=== PATIENT | male | born 1990 | race Hispanic/Latino ===

== ENCOUNTER 2017-06-14 10:51 | Observation (INO) | payer BC, OTHER ==
[2017-06-14 11:00] VITALS: BMI 27.1
[2017-06-14] MEDS ORDERED: Sodium Chloride 0.9% 1,000 ML IV STA (11:11)
--- NOTE | 2017-06-14 11:13 | ED PDOC ---
HPI: Abdomen Time Seen by Provider: 06/14/17 11:06 Chief Complaint (Nursing): Abdominal Pain Chief Complaint (Provider): abdominal pain, nausea, fever History Per: Patient History/Exam Limitations: no limitations Onset/Duration Of Symptoms: Days (2) Current Symptoms Are (Timing): Still Present Severity: Moderate Location Of Pain/Discomfort: RLQ Quality Of Discomfort: Sharp Associated Symptoms: Fever, Nausea, Vomiting, Loss Of Appetite. denies: Diarrhea Exacerbating Factors: None Alleviating Factors: None Additional Complaint(s): 26yo male sent from urgent care for RLQ pain x2 days associated with nausea/ vomiting and chills/fever. Concern for appendicitis. Pt denies prior history of similar pain. Past Medical History Reviewed: Historical Data, Nursing Documentation, Vital Signs Vital Signs: Last Vital Signs Temp 98.3 F 06/15/17 08:37 Pulse 73 06/15/17 08:37 Resp 18 06/15/17 08:37 BP 106/62 06/15/17 08:37 Pulse Ox 98 06/15/17 08:37 - Medical History PMH: No Chronic Diseases - Surgical History Surgical History: No Surg Hx - Family History Family History: States: Unknown Family Hx - Social History Current smoker - smoking cessation education provided: No Alcohol: Social - Home Medications Home Medications: Ambulatory Orders Medication Instructions Recorded Amoxicillin/Clavulanate [Augmentin 1 tab PO Q12 #14 tab 06/15/17 875 MG-125 MG] oxyCODONE/Acetaminophen [Percocet 1 tab PO Q6 PRN #30 tab 06/15/17 5/325 mg Tab] - Allergies Allergies/Adverse Reactions: Allergies Allergy/AdvReac Type Severity Reaction Status Date / Time No Known Allergies Allergy Verified 06/14/17 11:08 Review of Systems Constitutional: Positive for: Fever, Chills ENT: Negative for: Throat Pain, Throat Swelling Respiratory: Negative for: Cough, Shortness of Breath Gastrointestinal: Positive for: Nausea, Vomiting, Abdominal Pain. Negative for : Diarrhea, Constipation Genitourinary Male: Negative for: Dysuria Musculoskeletal: Negative for: Neck Pain, Shoulder Pain Skin: Negative for: Rash, Lesions Neurological: Negative for: Weakness, Numbness Psych: Negative for: Anxiety Physical Exam - Reviewed Nursing Documentation Reviewed: Yes Vital Signs Reviewed: Yes - Physical Exam Appears: Positive for: Well, Non-toxic, No Acute Distress Head Exam: Positive for: ATRAUMATIC, NORMAL INSPECTION, NORMOCEPHALIC Skin: Positive for: Normal Color, Warm, DRY Eye Exam: Negative for: Periorbital swelling Neck: Positive for: Normal, Painless ROM Cardiovascular/Chest: Positive for: Regular Rate, Rhythm Respiratory: Positive for: CNT, Normal Breath Sounds Gastrointestinal/Abdominal: Positive for: Bowel Sounds, Soft, Tenderness (RLQ). Negative for: Guarding, Rebound, Hernia, Asicites Back: Positive for: Normal Inspection Extremity: Positive for: Normal ROM, Other (cool hands). Negative for: Deformity Neurologic/Psych: Positive for: Alert, Oriented. Negative for: Motor/Sensory Deficits - Laboratory Results Result Diagrams: 06/15/17 06:05 06/15/17 06:05 - ECG O2 Sat by Pulse Oximetry: 99 Medical Decision Making Medical Decision Making: High suspicion for appendicitis given clinical signs and symptoms Workup initiated w bloodwork and CT abd pelv Time: 1509 CT Abdomen IMPRESSION: Findings consistent with acute uncomplicated appendicitis. No periappendiceal abscess. Mild hepatosplenomegaly. Incidentally noted short segment circumferential mural thickening of the proximal jejunum just distal to the duodenal -jejunal junction. Nonspecific. Followup advised. IV Antibiotics started. Time: 1519 Case discussed with neurosurgical physician assistant sergeant of corrections and Dr Alvarez attending surgeon Patient to be admitted under hospitalist sergeant of corrections for acute appendicitis. Disposition - Clinical Impression Clinical Impression: Appendicitis - Patient ED Disposition Is Patient to be Admitted: Yes - Disposition Disposition Time: 14:00 Condition: STABLE - Pt Status Changed To: Hospital Disposition Of: Observation
[2017-06-14 11:43] LABS: BASO % 0.2 % (0.0-2.0); EOS % 0.3 % (0.0-4.0); HEMOGLOBIN 17.9 g/dL (12.0-18.0); LYMPH # 0.6 K/uL (1.0-4.3); LYMPH % 6.2 % (20.0-40.0); MEAN CELL VOLUME 85.8 fl (80.0-94.0); MEAN PLATELET VOLUME 8.5 fl (7.2-11.7); MONO # 0.1 K/uL (0.0-0.8); MONO % 1.1 % (0.0-10.0); NEUT # 9.2 K/uL (1.8-7.0); NEUT % 92.2 % (50.0-75.0); NRBC % 0.1 % (0.0-0.0); PLATELET COUNT 147 K/uL (130-400); RBC 5.97 Mil/uL (4.40-5.90); RED CELL DISTRIBUTION WIDTH 12.7 % (11.5-14.5); WHITE BLOOD COUNT 9.9 K/uL (4.8-10.8)
[2017-06-14 11:46] LABS: VENOUS BLOOD GAS BASE EXCESS 3.6 mmol/L (0.0-2.0); VENOUS BLOOD GAS PCO2 65 mmHg (40-60); VENOUS BLOOD GAS PO2 16 mm/Hg (30-55); VENOUS BLOOD PH 7.31 (7.32-7.43)
[2017-06-14 12:09] LABS: ALBUMIN 4.9 g/dL (3.5-5.0); ALT/SGPT 31 U/L (21-72); AST/SGOT 25 U/L (17-59); BLOOD UREA NITROGEN 12 mg/dl (9-20); CALCIUM 9.7 mg/dL (8.4-10.2); GFR AFRICAN-AMERICAN > 60; GFR NON-AFRICAN AMERICAN > 60; LIPASE 72 U/L (23-300)
[2017-06-14 12:14] LABS: ALB/GLOB RATIO 1.3 (1.0-2.1)
[2017-06-14] MEDS ORDERED: Iohexol 300 100 ML IJ ONE (13:55)
[2017-06-14] MEDS ORDERED: Sodium Chloride 0.9% 50 ML IV ONE (13:55)
[2017-06-14 14:59] LABS: BANDS 3 % (0-2); BASOPHIL 1 % (0-2); EOSINOPHIL 1 % (0-7); LYMPHOCYTE 8 % (20-50); NEUTROPHIL 84 % (42-75); PLATELET ESTIMATE NORMAL (NORMAL); REACTIVE LYMPHOCYTES 3 % (0-0); TOTAL CELLS COUNTED 100
--- NOTE | 2017-06-14 15:11 | CT ---
PROCEDURE: CT Abdomen and Pelvis with contrast HISTORY: RLQ pain/tender, vomit, concern for appy COMPARISON: None. TECHNIQUE: Contrast dose: 100 mL Omnipaque 300 Radiation dose: Total exam DLP = 812.74 mGy-cm. This CT exam was performed using one or more of the following dose reduction techniques: Automated exposure control, adjustment of the mA and/or kV according to patient size, and/or use of iterative reconstruction technique. FINDINGS: LOWER THORAX: Unremarkable. LIVER: Mild hepatomegaly. The liver measures 19.3 cm craniocaudal. Smooth contour. No mass. No biliary ductal dilatation. GALLBLADDER AND BILE DUCTS: Unremarkable. PANCREAS: Unremarkable. No gross lesion or ductal dilatation. SPLEEN: Unremarkable. ADRENALS: Unremarkable. No mass. KIDNEYS AND URETERS: Unremarkable. No hydronephrosis. No solid mass. VASCULATURE: Unremarkable. No aortic aneurysm. BOWEL: No bowel obstruction. Incidentally noted short segment circumferential mural thickening of the most proximal jejunum just distal to the duodenal -jejunal junction. This is a nonspecific finding. The possibility of a focal inflammatory process must be considered. Neoplasm cannot be excluded. Follow-up advised. There are no other abnormal bowel loops identified, however. There is mild sigmoid diverticulosis. There is no evidence of diverticulitis. APPENDIX: The appendix is distended to a diameter of 11 mm. There is periappendiceal inflammation and fluid. Findings are consistent with acute appendicitis. There is no appendicolith identified. There is no periappendiceal abscess. PERITONEUM: Unremarkable. No free fluid. No free air. LYMPH NODES: Unremarkable. No enlarged lymph nodes. BLADDER: Unremarkable. REPRODUCTIVE: Normal prostate BONES: Unremarkable OTHER FINDINGS: None. IMPRESSION: Findings consistent with acute uncomplicated appendicitis. No periappendiceal abscess. Mild hepatosplenomegaly. Incidentally noted short segment circumferential mural thickening of the proximal jejunum just distal to the duodenal -jejunal junction. Nonspecific. Followup advised.
[2017-06-14 15:20] LABS: MONOCYTE 0 % (0-10)
[2017-06-14] MEDS ORDERED: Piperacillin/Tazobact 4.5 GM in Sodium Chloride 0.9% 100 ML IVPB ONE (15:45)
--- NOTE | 2017-06-14 17:06 | CP.PCM.CON ---
<Lena Abrams - Last Filed: 06/14/17 17:04> History of Present Illness - History of Present Illness History of Present Illness: General surgery consult note for Dr. Venice Abrams, PGY-1 Pt S & E at bedside. 26M w/no sig PMH consulted for RLQ ab pain x 2 days. Pt reports ab pain started periumbilical, then localized to RLQ. Pain was severe, constant, variable in intensity to a "discomfort". Tried Advil with minimal pain relief. Admits to fevers, chills, nausea, emesis (food, nbnb), poor appetite. Denies changes in bowel habits, changes in urinary habits, ever having before, recent illness, other complaints. PMH; Denies PSH: Denies All: NDKA SH: Admits to social ETOH use, denies tobacco or illicit drug use Review of Systems - Review of Systems All systems: reviewed and no additional remarkable complaints except - Constitutional Constitutional: Chills, Fever. absent: Headache, Increased Appetite - EENT Eyes: absent: Change in Vision Nose/Mouth/Throat: absent: Sore Throat - Cardiovascular Cardiovascular: absent: Chest Pain - Gastrointestinal Gastrointestinal: Abdominal Pain, Nausea, Vomiting. absent: Change in Bowel Habits, Constipation, Diarrhea, Hematemesis, Hematochezia, Loose Stools, Melena - Genitourinary Genitourinary: absent: Change in Urinary Stream - Musculoskeletal Musculoskeletal: absent: Neck Pain - Integumentary Integumentary: absent: Rash - Neurological Neurological: absent: Weakness - Psychiatric Psychiatric: Change in Appetite (decreased) - Endocrine Endocrine: absent: Fatigue Past Patient History - Past Medical History & Family History Past Medical History?: No - Past Social History Smoking Status: Never Smoked - CARDIAC Hx Cardiac Disorders: No (Denies) - PULMONARY Hx Respiratory Disorders: (Denies) - PSYCHIATRIC Hx Substance Use: No Meds Allergies/Adverse Reactions: Allergies Allergy/AdvReac Type Severity Reaction Status Date / Time No Known Allergies Allergy Verified 06/14/17 11:08 Physical Exam - Constitutional Appears: Non-toxic, No Acute Distress - Head Exam Head Exam: ATRAUMATIC, NORMAL INSPECTION, NORMOCEPHALIC - Eye Exam Eye Exam: EOMI, Normal appearance - ENT Exam ENT Exam: Mucous Membranes Moist, Normal Exam - Neck Exam Neck exam: Positive for: Full Rom, Normal Inspection - Respiratory Exam Respiratory Exam: NORMAL BREATHING PATTERN - Cardiovascular Exam Cardiovascular Exam: REGULAR RHYTHM, +S1, +S2 - GI/Abdominal Exam GI & Abdominal Exam: Guarding, Tenderness (RLQ, positive McBurney's point, negative psoas, negative Rovsings ). absent: Distended, Firm, Hernia, Rebound, Rigid, Soft - Extremities Exam Extremities exam: Positive for: normal inspection - Neurological Exam Neurological exam: Alert, CN II-XII Intact, Oriented x3 - Psychiatric Exam Psychiatric exam: Normal Affect, Normal Mood - Skin Skin Exam: Dry, Intact, Normal Color, Warm Results - Vital Signs Recent Vital Signs: Last Vital Signs Temp 97.8 F 06/14/17 11:00 Pulse 111 H 06/14/17 11:00 Resp 16 06/14/17 11:00 BP 137/77 06/14/17 11:00 Pulse Ox 99 06/14/17 15:19 - Labs Result Diagrams: 06/14/17 11:31 06/14/17 11:31 Labs: Laboratory Results - last 24 hr 06/14/17 06/14/17 06/14/17 11:21 11:31 11:31 WBC 9.9 RBC 5.97 H Hgb 17.9 Hct 51.3 H MCV 85.8 MCH 30.0 MCHC 35.0 RDW 12.7 Plt Count 147 MPV 8.5 Neut % (Auto) 92.2 H Lymph % (Auto) 6.2 L Taney % (Auto) 1.1 Eos % (Auto) 0.3 Baso % (Auto) 0.2 Neut # 9.2 H Lymph # 0.6 L Taney # 0.1 Eos # 0.0 Baso # 0.0 Neutrophils % (Manual) 84 H Band Neutrophils % 3 H Lymphocytes % (Manual) 8 L Reactive Lymphs % 3 H Monocytes % (Manual) 0 Eosinophils % (Manual) 1 Basophils % (Manual) 1 Platelet Estimate Normal RBC Morphology Normal pO2 16 L VBG pH 7.31 L VBG pCO2 65 H VBG HCO3 25.1 VBG Total CO2 34.7 H VBG O2 Sat (Calc) 28.9 L VBG Base Excess 3.6 H VBG Potassium 4.0 Sodium 137.0 141 Chloride 98.0 98 Glucose 117 H Lactate 2.6 H FiO2 21.0 Potassium 4.2 Carbon Dioxide 28 Anion Gap 19 BUN 12 Creatinine 1.3 Est GFR ( Amer) > 60 Est GFR (Non-Af Amer) > 60 Random Glucose 117 H Calcium 9.7 Total Bilirubin 2.6 H AST 25 ALT 31 Alkaline Phosphatase 52 Total Protein 8.5 H Albumin 4.9 Globulin 3.6 Albumin/Globulin Ratio 1.3 Lipase 72 Venous Blood Potassium 4.0 Assessment & Plan - Assessment and Plan (Free Text) Assessment: 26 M w/acute appendicitis Plan: For OR today- appendectomy Consent in chart Pain meds Abx anti-emetics DW attending Aliza, PGY-1 - Date & Time Date: 06/14/17 Time: 17:06 <Malcolm Alvarez - Last Filed: 06/14/17 17:38> History of Present Illness - History of Present Illness History of Present Illness: Patient was seen and examined at the bedside. Agree with resident's note above Meds - Medications Medications: Current Medications Acetaminophen (Tylenol 325mg Tab) 650 mg PO Q6 PRN PRN Reason: Fever >100.4 F Sodium Chloride (Sodium Chloride 0.9%) 1,000 mls @ 100 mls/hr IV .Q10H PUSHPA Piperacillin Sod/Tazobactam (Sod 3.375 gm/ Sodium Chloride) 100 mls @ 100 mls/ hr IVPB Q6 PUSHPA PRN Reason: Protocol Ketorolac Tromethamine (Toradol) 30 mg IVP Q6 PRN PRN Reason: Pain, severe (8-10) Ketorolac Tromethamine (Toradol) 15 mg IM Q6 PRN PRN Reason: Pain, moderate (4-7) Ondansetron HCl (Zofran Inj) 4 mg IVP Q6 PRN PRN Reason: Nausea/Vomiting Pantoprazole Sodium (Protonix Inj) 40 mg IVP DAILY REPLACED BY [facility] Results - Vital Signs Recent Vital Signs: Last Vital Signs Temp 97.8 F 06/14/17 11:00 Pulse 111 H 06/14/17 11:00 Resp 16 06/14/17 11:00 BP 137/77 06/14/17 11:00 Pulse Ox 99 06/14/17 15:19 - Labs Result Diagrams: 06/14/17 11:31 06/14/17 11:31 Labs: Laboratory Results - last 24 hr 06/14/17 06/14/1718 11:21 11:31 11:31 WBC 9.9 RBC 5.97 H Hgb 17.9 Hct 51.3 H MCV 85.8 MCH 30.0 MCHC 35.0 RDW 12.7 Plt Count 147 MPV 8.5 Neut % (Auto) 92.2 H Lymph % (Auto) 6.2 L Taney % (Auto) 1.1 Eos % (Auto) 0.3 Baso % (Auto) 0.2 Neut # 9.2 H Lymph # 0.6 L Taney # 0.1 Eos # 0.0 Baso # 0.0 Neutrophils % (Manual) 84 H Band Neutrophils % 3 H Lymphocytes % (Manual) 8 L Reactive Lymphs % 3 H Monocytes % (Manual) 0 Eosinophils % (Manual) 1 Basophils % (Manual) 1 Platelet Estimate Normal RBC Morphology Normal pO2 16 L VBG pH 7.31 L VBG pCO2 65 H VBG HCO3 25.1 VBG Total CO2 34.7 H VBG O2 Sat (Calc) 28.9 L VBG Base Excess 3.6 H VBG Potassium 4.0 Sodium 137.0 141 Chloride 98.0 98 Glucose 117 H Lactate 2.6 H FiO2 21.0 Potassium 4.2 Carbon Dioxide 28 Anion Gap 19 BUN 12 Creatinine 1.3 Est GFR ( Amer) > 60 Est GFR (Non-Af Amer) > 60 Random Glucose 117 H Calcium 9.7 Total Bilirubin 2.6 H AST 25 ALT 31 Alkaline Phosphatase 52 Total Protein 8.5 H Albumin 4.9 Globulin 3.6 Albumin/Globulin Ratio 1.3 Lipase 72 Venous Blood Potassium 4.0 - Imaging and Cardiology CT scan - abdomen Status: Image reviewed by me, Report reviewed by me
--- NOTE | 2017-06-14 17:17 | CP.PCM.HP ---
History of Present Illness - History of Present Illness History of Present Illness: 26 y/o male with no PMH presented to ER for evaluation for 2 day history of abdominal pain . He was seen in an urgent care center and recommended to come to ER. Patient states that pain initially was mid abdomen , severe , sharp 10/ 10 showing no radiation , associated with nausea, vomiting , fever, chills. The next morning pain became more localized to RLQ. Denies any problems with bowel movements or urinary symptoms. Denies any toxic habits like smoking , drinking drug abuse. He is very active, exercises daily and denies any Chest pain SOB , palpitations, PND , orthopnea. Denies any family history oh heart disease CT abdomen in ER showed acute appendicitis. Patient to be admitted to med/surg with surgery consult on board. PMD ; none ROS ; 10 point review of syste,m negative except above Allergies ; NKDA PMH ; None Medications; None Surgeries ; none Family history : none Social history ; Lives by himself., denies any smoking , ETOH or drug abuse, works as construction assistant Present on Admission - Present on Admission Any Indicators Present on Admission: No Review of Systems - Review of Systems All systems: reviewed and no additional remarkable complaints except Past Patient History - Infectious Disease Hx of Infectious Diseases: None - Tetanus Immunizations Tetanus Immunization: Unknown - Past Medical History & Family History Past Medical History?: No - Past Social History Smoking Status: Never Smoked Chewing Tobacco Use: No Cigar Use: No Alcohol: Social Drugs: Denies Home Situation {Lives}: Alone Domestic Violence: Negative - CARDIAC Hx Cardiac Disorders: No (Denies) - PULMONARY Hx Respiratory Disorders: (Denies) - PSYCHIATRIC Hx Substance Use: No Meds Allergies/Adverse Reactions: Allergies Allergy/AdvReac Type Severity Reaction Status Date / Time No Known Allergies Allergy Verified 06/14/17 11:08 Physical Exam - Constitutional Appears: Non-toxic, No Acute Distress - Head Exam Head Exam: ATRAUMATIC, NORMAL INSPECTION, NORMOCEPHALIC - Eye Exam Eye Exam: EOMI, Normal appearance, PERRL Pupil Exam: NORMAL ACCOMODATION - ENT Exam ENT Exam: Mucous Membranes Moist, Normal Exam - Neck Exam Neck exam: Positive for: Normal Inspection - Respiratory Exam Respiratory Exam: Clear to Auscultation Bilateral, NORMAL BREATHING PATTERN. absent: Rales, Rhonchi, Wheezes - Cardiovascular Exam Cardiovascular Exam: REGULAR RHYTHM, RRR, +S1, +S2. absent: JVD - GI/Abdominal Exam GI & Abdominal Exam: Normal Bowel Sounds, Soft, Tenderness (to RLQ ). absent: Distended, Guarding, Rebound - Rectal Exam Rectal Exam: Deferred - Extremities Exam Extremities exam: Positive for: normal capillary refill, normal inspection, pedal pulses present. Negative for: calf tenderness, pedal edema - Back Exam Back exam: NORMAL INSPECTION - Neurological Exam Neurological exam: Alert, CN II-XII Intact, Oriented x3, Reflexes Normal - Psychiatric Exam Psychiatric exam: Normal Affect, Normal Mood - Skin Skin Exam: Dry, Intact, Normal Color, Warm Results - Vital Signs Recent Vital Signs: Last Vital Signs Temp 97.8 F 06/14/17 11:00 Pulse 111 H 06/14/17 11:00 Resp 16 06/14/17 11:00 BP 137/77 06/14/17 11:00 Pulse Ox 99 06/14/17 15:19 - Labs Result Diagrams: 06/14/17 11:31 06/14/17 11:31 Labs: Laboratory Results - last 24 hr 06/14/17 06/14/17 06/14/17 11:21 11:31 11:31 WBC 9.9 RBC 5.97 H Hgb 17.9 Hct 51.3 H MCV 85.8 MCH 30.0 MCHC 35.0 RDW 12.7 Plt Count 147 MPV 8.5 Neut % (Auto) 92.2 H Lymph % (Auto) 6.2 L [place] % (Auto) 1.1 Eos % (Auto) 0.3 Baso % (Auto) 0.2 Neut # 9.2 H Lymph # 0.6 L Roosevelt # 0.1 Eos # 0.0 Baso # 0.0 Neutrophils % (Manual) 84 H Band Neutrophils % 3 H Lymphocytes % (Manual) 8 L Reactive Lymphs % 3 H Monocytes % (Manual) 0 Eosinophils % (Manual) 1 Basophils % (Manual) 1 Platelet Estimate Normal RBC Morphology Normal pO2 16 L VBG pH 7.31 L VBG pCO2 65 H VBG HCO3 25.1 VBG Total CO2 34.7 H VBG O2 Sat (Calc) 28.9 L VBG Base Excess 3.6 H VBG Potassium 4.0 Sodium 137.0 141 Chloride 98.0 98 Glucose 117 H Lactate 2.6 H FiO2 21.0 Potassium 4.2 Carbon Dioxide 28 Anion Gap 19 BUN 12 Creatinine 1.3 Est GFR ( Amer) > 60 Est GFR (Non-Af Amer) > 60 Random Glucose 117 H Calcium 9.7 Total Bilirubin 2.6 H AST 25 ALT 31 Alkaline Phosphatase 52 Total Protein 8.5 H Albumin 4.9 Globulin 3.6 Albumin/Globulin Ratio 1.3 Lipase 72 Venous Blood Potassium 4.0 - Imaging and Cardiology CT scan - abdomen Additional comment: acute uncomplicated appendicitis. No periappendiceal abscess. Mild hepatosplenomegaly. Incidentally noted short segment circumferential mural thickening of the proximal jejunum just distal to the duodenal -jejunal junction. Assessment & Plan - Assessment and Plan (Free Text) Assessment: 26 y/o male with no PMH presented to ER for evaluation for 2 day history of abdominal pain . He was seen in an urgent care center and recommended to come to ER. Patient states that pain initially was mid abdomen , severe , sharp 10/ 10 showing no radiation , associated with nausea, vomiting , fever, chills. The next morning pain became more localized to RLQ. Denies any problems with bowel movements or urinary symptoms. Denies any toxic habits like smoking , drinking drug abuse. He is very active, exercises daily and denies any Chest pain SOB , palpitations, PND , orthopnea. Denies any family history oh heart disease CT abdomen in ER showed acute appendicitis. WBC 9.9 Patient to be admitted to med/surg with surgery consult on board. 1. Acute appendicitis admit patient to med/surg Srinivas consulted in ER Keep NPO ( last had half a cup of water 1 hour ago 0 patient is low risk for surgery Pain management IVF Zosyn IV
[2017-06-14] MEDS ORDERED: Propofol 10 mg/ml Inj (20 ML) ONE ×2 (17:25→17:35)
[2017-06-14] MEDS ORDERED: Succinylcholine 200 mg/10 ml Inj IV ONE (17:25)
[2017-06-14] MEDS ORDERED: Lactated Ringer's 1,000 ML IV ONE ×2 (17:30→19:00)
[2017-06-14] MEDS ORDERED: Sodium Chloride 0.9% 1,000 ML IV SCH (17:30)
[2017-06-14] MEDS ORDERED: Rocuronium 10 mg/ml (5 ml) ONE (17:56)
[2017-06-14] MEDS ORDERED: Neostigmine Methylsulfate 2 MG/2 ML ML IV ONE (18:43)
[2017-06-14] MEDS ORDERED: Bupivacaine 0.5% Inj(30mL) ONE (18:46)
[2017-06-14] MEDS ORDERED: Bupivacaine 0.5% 50 ML IJ ONE (18:50)
[2017-06-14] MEDS ORDERED: Oxycodone/Acetaminophen 5/325 mg Tab PO PRN ×2 (18:51→18:54)
--- NOTE | 2017-06-14 18:57 | PCM.SURG1 ---
Surgeon's Initial Post Op Note - Surgeon's Notes Surgeon: Antonio Nuclear Operator: Aliza Type of Anesthesia: General Endo Anesthesia Administered By: General Pre-Operative Diagnosis: Acute appendicitis Operative Findings: Acute appendicitis Post-Operative Diagnosis: Same Operation Performed: Laparoscopic Appendectomy Specimen/Specimens Removed: Appendix Estimated Blood Loss: EBL {In ML}: 10 Blood Products Given: N/A Drains Used: No Drains Post-Op Condition: Good Date of Surgery/Procedure: 06/14/17 Time of Surgery/Procedure: 17:20
[2017-06-14] MEDS ORDERED: Lactated Ringer's 1,000 ML IV SCH ×2 (19:00→19:15)
[2017-06-14] MEDS ORDERED: Dexamethasone 4 mg/1 ml IVP PRN (19:06)
[2017-06-14] MEDS ORDERED: HYDROmorphone 0.5 mg/0.5 ml ISec IVP PRN (19:06)
[2017-06-14] MEDS: Piperacillin/Tazobact 3.375 GM in Sodium Chloride 0.9% 100 ML IVPB SCH (22:10)
[2017-06-15] MEDS: Piperacillin/Tazobact 3.375 GM in Sodium Chloride 0.9% 100 ML IVPB SCH ×2 (03:54→09:51)
--- NOTE | 2017-06-15 04:19 | OP ---
PROCEDURE DATE: 06/14/2017 PREOPERATIVE DIAGNOSIS: Acute appendicitis. POSTOPERATIVE DIAGNOSIS: Acute appendicitis. PROCEDURE: Laparoscopic appendectomy. SURGEON: Malcolm Alvarez MD [employer] OPERATOR: Dr. Abrams. TYPE OF ANESTHESIA: General with endotracheal intubation. INTRAOPERATIVE FINDINGS: Acute appendicitis. IV FLUID INTAKE: Crystalloids. ESTIMATED BLOOD LOSS: 10 mL. SPECIMEN: Appendix. BRIEF HISTORY: Mr. West is a very pleasant 26-year-old gentleman, who presented to the hospital, complaining of lower abdominal pain for the duration of the last 2 days, and upon further investigation on the CAT scan, the patient was found to have elevated white blood cell count as well as CAT scan findings significant for acute appendicitis. All the risks and benefits of the procedure were explained to the patient, and with the patient having a full understanding of all the risks and benefits involved, informed consent was obtained, and the patient was taken to the operating room for the above-stated procedure. DESCRIPTION OF PROCEDURE: The patient was brought into the operating room and placed supine on the operating table. Bilateral Flowtron boots were applied to the patient's lower extremities. After successful induction of anesthesia and successful endotracheal intubation by the Anesthesia team, Medrano catheter was inserted into the patient's urinary bladder. Subsequent to that, the patient's abdomen was shaved and prepped with Chloraprep stick and draped in the standard surgical fashion. Prior to the beginning of the procedure, time-out was called in the room and everyone in the room were in agreement. Using Veress needle, the patient's abdomen was entered at the umbilicus and pneumoperitoneum was achieved with good opening pressures. Once this was accomplished, using a 11-blade scalpel knife, a 5-mm incision was made in a longitudinal fashion in the umbilicus and subsequent to that, a 5-mm trocar was introduced into the patient's abdomen. At this point in time, a 5-mm 0-degree scope was introduced into the patient's abdomen and the abdomen was inspected and we immediately were able to visualize some inflammatory changes in the right lower quadrant. Then attention was turned to the lower mid-abdomen. Using an 11-blade scalpel knife, a 5-mm incision was made in a transverse fashion, and subsequent to that, another 5-mm trocar was introduced into the patient's abdomen. Then, attention was turned to the left lower quadrant of the patient's abdomen. Using an 11-blade scalpel knife, approximately an 1-cm incision was made in a transverse fashion, and subsequent to that, a 12-mm trocar was introduced into the patient's abdomen. At this point in time, using 2 graspers, appendix was mobilized right next to the cecum, and using [place] dissector, the window was created between the appendix and the mesoappendix. Appendix was taken right at the base with a 45-mm blue-load EndoGIA stapler. Once this was accomplished, the mesoappendix as well as the lateral attachments to the abdominal wall were taken down with the Harmonic scalpel. Once the appendix was completely freed up, EndoCatch bag was introduced into the patient's abdomen, appendix was placed inside of the bag, and the bag was closed. At this point in time, the staple line as well as the mesoappendix was inspected for hemostasis, and hemostasis was confirmed. The 12-mm trocar together with the EndoCatch bag and the appendix were removed from the patient's abdomen and passed off to the [facility] as a specimen. Fascial layer at the 12-mm trocar site was closed with one interrupted 0-Vicryl suture on the UR-5 needle, and subsequent to that, the patient's abdomen was fully desufflated. The rest of the trocars were removed from the patient's abdomen and the skin was closed with 4-0 Monocryl suture in a running subcuticular fashion. At the end of the procedure, the incision sites were infiltrated with Marcaine anesthetic. The patient's abdomen was washed and dried and the Dermabond was applied to the site of the incisions. Medrano catheter was removed from the patient's urinary bladder. The patient was successfully extubated by the Anesthesia team, [facility] and [facility] to the recovery room in a stable condition. At the end of the procedure, all instrument counts, needles, and sponges were correct. Malcolm Alvarez MD
[2017-06-15 06:26] LABS: BASO % 0.4 % (0.0-2.0); EOS % 0.6 % (0.0-4.0); HEMOGLOBIN 12.8 g/dL (12.0-18.0); LYMPH # 0.8 K/uL (1.0-4.3); MEAN CELL VOLUME 85.6 fl (80.0-94.0); MEAN CORPUSCULAR HEMOGLOBIN 29.7 pg (27.0-31.0); MEAN CORPUSCULAR HGB CONC 34.7 g/dL (33.0-37.0); MONO # 0.4 K/uL (0.0-0.8); MONO % 6.2 % (0.0-10.0); NEUT # 5.5 K/uL (1.8-7.0); NEUT % 80.8 % (50.0-75.0); NRBC % 0.1 % (0.0-0.0); RBC 4.31 Mil/uL (4.40-5.90); RED CELL DISTRIBUTION WIDTH 12.5 % (11.5-14.5); WHITE BLOOD COUNT 6.8 K/uL (4.8-10.8)
[2017-06-15 06:42] LABS: ALB/GLOB RATIO 1.1 (1.0-2.1); ALBUMIN 3.1 g/dL (3.5-5.0); ALT/SGPT 34 U/L (21-72); AST/SGOT 21 U/L (17-59); BLOOD UREA NITROGEN 14 mg/dl (9-20); CALCIUM 7.9 mg/dL (8.4-10.2); GFR AFRICAN-AMERICAN > 60; GFR NON-AFRICAN AMERICAN > 60
--- NOTE | 2017-06-15 08:01 | CP.PCM.PN ---
<Chadd Kelsey - Last Filed: 06/15/17 08:27> Subjective - Date & Time of Evaluation Date of Evaluation: 06/15/17 Time of Evaluation: 08:01 - Subjective Subjective: General Surgery: Dr Alvarez Pt S&E. Doing excellent. Has been afebrile since 11PM. OOB to chair. Voiding. pain significantly improved. Denies n/v, f/c. Passing gas Objective - Vital Signs/Intake and Output Vital Signs (last 24 hours): Temp Pulse Resp BP Pulse Ox 98.4 F 80 20 95/58 L 99 06/15/17 04:30 06/15/17 04:30 06/15/17 04:30 06/15/17 04:30 06/15/17 04:30 Intake and Output: 06/15/17 06/15/17 06:59 18:59 Intake Total 500 Output Total 75 Balance 425 - Medications Medications: Current Medications Acetaminophen (Tylenol 325mg Tab) 650 mg PO Q6 PRN PRN Reason: Fever >100.4 F Last Admin: 06/14/17 19:30 Dose: 650 mg Sodium Chloride (Sodium Chloride 0.9%) 1,000 mls @ 100 mls/hr IV .Q10H [facility] Last Admin: 06/15/17 03:53 Dose: Not Given Piperacillin Sod/Tazobactam (Sod 3.375 gm/ Sodium Chloride) 100 mls @ 100 mls/ hr IVPB Q6 PUSHPA PRN Reason: Protocol Last Admin: 06/15/17 03:54 Dose: 100 mls/hr Lactated Ringer's (Lactated Ringer's) 1,000 mls @ 100 mls/hr IV .Q10H [facility] Last Admin: 06/14/17 22:12 Dose: 100 mls/hr Lactated Ringer's (Lactated Ringer's) 1,000 mls @ 100 mls/hr IV .Q10H [facility] Meperidine HCl (Demerol) 12.5 mg IVP Q5M PRN PRN Reason: Shivering/Rigor Morphine Sulfate (Morphine) 4 mg IVP Q4 PRN PRN Reason: Pain, severe (8-10) Ondansetron HCl (Zofran Inj) 4 mg IVP Q6 PRN PRN Reason: Nausea/Vomiting Oxycodone/Acetaminophen (Percocet 5/325 Mg Tab) 1 tab PO Q4 PRN PRN Reason: Pain, Mild (1-3) Stop: 06/17/17 18:52 Oxycodone/Acetaminophen (Percocet 5/325 Mg Tab) 2 tab PO Q4 PRN PRN Reason: Pain, moderate (4-7) Stop: 06/17/17 18:55 Pantoprazole Sodium (Protonix Inj) 40 mg IVP DAILY PUSHPA - Labs Labs: 06/15/17 06:05 06/15/17 06:05 - Constitutional Appears: Non-toxic, No Acute Distress - Respiratory Exam Respiratory Exam: absent: Accessory Muscle Use, Respiratory Distress - Cardiovascular Exam Cardiovascular Exam: REGULAR RHYTHM - GI/Abdominal Exam GI & Abdominal Exam: Soft, Tenderness (theodore-incisional). absent: Distended, Firm, Guarding, Rigid - Neurological Exam Neurological Exam: Awake. absent: Alert, Oriented x3 - Psychiatric Exam Psychiatric exam: Normal Affect - Skin Skin Exam: Normal Color, Warm Assessment and Plan - Assessment and Plan (Free Text) Assessment: 26M POD#1 s/p appendectomy Plan: will adv to regular diet possible d/c this afternoon pending attending evaluation will d/w Dr Antonio Kelsey, PGY3 <Malcolm Alvarez - Last Filed: 06/15/17 12:44> Subjective - Date & Time of Evaluation Time of Evaluation: 11:55 - Subjective Subjective: Patient was seen and examined at the bedside. Agree with resident's note above. Objective - Vital Signs/Intake and Output Vital Signs (last 24 hours): Temp Pulse Resp BP Pulse Ox 98.3 F 73 18 106/62 98 06/15/17 08:37 06/15/17 08:37 06/15/17 08:37 06/15/17 08:37 06/15/17 08:37 Intake and Output: 06/15/17 06/15/17 06:59 18:59 Intake Total 500 Output Total 75 Balance 425 - Medications Medications: Current Medications Acetaminophen (Tylenol 325mg Tab) 650 mg PO Q6 PRN PRN Reason: Fever >100.4 F Last Admin: 06/14/17 19:30 Dose: 650 mg Sodium Chloride (Sodium Chloride 0.9%) 1,000 mls @ 100 mls/hr IV .Q10H PUSHPA Last Admin: 06/15/17 03:53 Dose: Not Given Piperacillin Sod/Tazobactam (Sod 3.375 gm/ Sodium Chloride) 100 mls @ 100 mls/ hr IVPB Q6 PUSHPA PRN Reason: Protocol Last Admin: 06/15/17 09:51 Dose: 100 mls/hr Lactated Ringer's (Lactated Ringer's) 1,000 mls @ 100 mls/hr IV .Q10H [facility] Last Admin: 06/14/17 22:12 Dose: 100 mls/hr Lactated Ringer's (Lactated Ringer's) 1,000 mls @ 100 mls/hr IV .Q10H [facility] Meperidine HCl (Demerol) 12.5 mg IVP Q5M PRN PRN Reason: Shivering/Rigor Morphine Sulfate (Morphine) 4 mg IVP Q4 PRN PRN Reason: Pain, severe (8-10) Ondansetron HCl (Zofran Inj) 4 mg IVP Q6 PRN PRN Reason: Nausea/Vomiting Oxycodone/Acetaminophen (Percocet 5/325 Mg Tab) 1 tab PO Q4 PRN PRN Reason: Pain, Mild (1-3) Stop: 06/17/17 18:52 Oxycodone/Acetaminophen (Percocet 5/325 Mg Tab) 2 tab PO Q4 PRN PRN Reason: Pain, moderate (4-7) Stop: 06/17/17 18:55 Pantoprazole Sodium (Protonix Inj) 40 mg IVP DAILY [facility] Last Admin: 06/15/17 08:49 Dose: 40 mg - Labs Labs: 06/15/17 06:05 06/15/17 06:05 Assessment and Plan - Assessment and Plan (Free Text) Plan: - Clear for discharge home from general surgery stand point - Augmentin 875/125 mg po Q12h for 1 week on discharge - Patient will follow up with me in the office in 10 days to 2 weeks for post- op visit
[2017-06-15 08:38] VITALS: BP 106/62; PULSE 73; RESP 18; TEMP 98.3
[2017-06-15 10:06] LABS: MEAN PLATELET VOLUME 8.6 fl (7.2-11.7)
--- NOTE | 2017-06-15 12:16 | CP.PCM.DIS ---
Provider - Provider Date of Admission: 06/14/17 15:19 Attending physician: Sun Shha MD Primary care physician: None Consults: surgery consult Time Spent in preparation of Discharge (in minutes): 10 Hospital Course - Lab Results Lab Results: Most Recent Lab Values WBC 6.8 K/uL (4.8-10.8) 06/15/17 06:05 RBC 4.31 Mil/uL (4.40-5.90) L 06/15/17 06:05 Hgb 12.8 g/dL (12.0-18.0) D 06/15/17 06:05 Hct 36.9 % (35.0-51.0) 06/15/17 06:05 MCV 85.6 fl (80.0-94.0) 06/15/17 06:05 MCH 29.7 pg (27.0-31.0) 06/15/17 06:05 MCHC 34.7 g/dL (33.0-37.0) 06/15/17 06:05 RDW 12.5 % (11.5-14.5) 06/15/17 06:05 Plt Count 87 K/uL (130-400) L D 06/15/17 06:05 MPV 8.6 fl (7.2-11.7) 06/15/17 06:05 Neut % (Auto) 80.8 % (50.0-75.0) H 06/15/17 06:05 Lymph % (Auto) 12.0 % (20.0-40.0) L 06/15/17 06:05 [place] % (Auto) 6.2 % (0.0-10.0) 06/15/17 06:05 Eos % (Auto) 0.6 % (0.0-4.0) 06/15/17 06:05 Baso % (Auto) 0.4 % (0.0-2.0) 06/15/17 06:05 Neut # 5.5 K/uL (1.8-7.0) 06/15/17 06:05 Lymph # 0.8 K/uL (1.0-4.3) L 06/15/17 06:05 [place] # 0.4 K/uL (0.0-0.8) 06/15/17 06:05 Eos # 0.0 K/uL (0.0-0.7) 06/15/17 06:05 Baso # 0.0 K/uL (0.0-0.2) 06/15/17 06:05 Neutrophils % (Manual) 84 % (42-75) H 06/14/17 11:31 Band Neutrophils % 3 % (0-2) H 06/14/17 11:31 Lymphocytes % (Manual) 8 % (20-50) L 06/14/17 11:31 Reactive Lymphs % 3 % (0-0) H 06/14/17 11:31 Monocytes % (Manual) 0 % (0-10) 06/14/17 11:31 Eosinophils % (Manual) 1 % (0-7) 06/14/17 11:31 Basophils % (Manual) 1 % (0-2) 06/14/17 11:31 Platelet Estimate Normal (NORMAL) 06/14/17 11:31 RBC Morphology Normal (NORMAL) 06/14/17 11:31 pO2 16 mm/Hg (30-55) L 06/14/17 11:21 VBG pH 7.31 (7.32-7.43) L 06/14/17 11:21 VBG pCO2 65 mmHg (40-60) H 06/14/17 11:21 VBG HCO3 25.1 mmol/L 06/14/17 11:21 VBG Total CO2 34.7 mmol/L (22-28) H 06/14/17 11:21 VBG O2 Sat (Calc) 28.9 % (40-65) L 06/14/17 11:21 VBG Base Excess 3.6 mmol/L (0.0-2.0) H 06/14/17 11:21 VBG Potassium 4.0 mmol/L (3.6-5.2) 06/14/17 11:21 Sodium 137.0 mmol/L (132-148) 06/14/17 11:21 Chloride 98.0 mmol/L (98-107) 06/14/17 11:21 Glucose 117 mg/dL (75-110) H 06/14/17 11:21 Lactate 2.6 mmol/L (0.7-2.1) H 06/14/17 11:21 FiO2 21.0 % 06/14/17 11:21 Sodium 133 mmol/l (132-148) 06/15/17 06:05 Potassium 3.6 MMOL/L (3.6-5.0) 06/15/17 06:05 Chloride 97 mmol/L (98-107) L 06/15/17 06:05 Carbon Dioxide 25 mmol/L (22-30) 06/15/17 06:05 Anion Gap 15 (10-20) 06/15/17 06:05 BUN 14 mg/dl (9-20) 06/15/17 06:05 Creatinine 1.2 mg/dl (0.8-1.5) 06/15/17 06:05 Est GFR ( Amer) > 60 06/15/17 06:05 Est GFR (Non-Af Amer) > 60 06/15/17 06:05 Random Glucose 120 mg/dL (75-110) H 06/15/17 06:05 Calcium 7.9 mg/dL (8.4-10.2) L 06/15/17 06:05 Total Bilirubin 2.8 mg/dl (0.2-1.3) H 06/15/17 06:05 AST 21 U/L (17-59) 06/15/17 06:05 ALT 34 U/L (21-72) 06/15/17 06:05 Alkaline Phosphatase 32 U/L (38-126) L D 06/15/17 06:05 Total Protein 5.8 G/DL (6.3-8.2) L 06/15/17 06:05 Albumin 3.1 g/dL (3.5-5.0) L D 06/15/17 06:05 Globulin 2.7 gm/dL (2.2-3.9) 06/15/17 06:05 Albumin/Globulin Ratio 1.1 (1.0-2.1) 06/15/17 06:05 Lipase 72 U/L (23-300) 06/14/17 11:31 Venous Blood Potassium 4.0 mmol/L (3.6-5.2) 06/14/17 11:21 - Hospital Course Hospital Course: 26 y/o male with no PMH presented to ER for evaluation for 2 day history of abdominal pain . He was seen in an urgent care center and recommended to come to ER. Patient stated that pain initially was mid abdomen , severe , sharp 10/ 10 showing no radiation , associated with nausea, vomiting , fever, chills. The next morning pain became more localized to RLQ. Denied any problems with bowel movements or urinary symptoms. Denied any toxic habits like smoking , drinking drug abuse. He is very active, exercises daily and denies any Chest pain SOB , palpitations, PND , orthopnea. Denied any family history of heart disease CT abdomen in ER showed acute appendicitis. WBC 9.9 Patient was admitted to med/surg with surgery consult on board and he was taken to OR and underwent laparascopic appendectomy. Post op doing well , pain is controlled,passing flatus,ambulating ,tolerating PO intake. Patient cleared to be discharged by surgery on PO Augmentin and percoset PRN for pain Will d/c patient home Follow up with Dr. Alvarez in 1week 1. Acute appendicitis Discharge Exam - Head Exam Head Exam: ATRAUMATIC, NORMAL INSPECTION, NORMOCEPHALIC - Eye Exam Eye Exam: EOMI, Normal appearance, PERRL Pupil Exam: NORMAL ACCOMODATION - ENT Exam ENT Exam: Mucous Membranes Moist, Normal Exam - Neck Exam Neck exam: Full Rom, Normal Inspection - Respiratory Exam Respiratory Exam: Clear to PA & Lateral, NORMAL BREATHING PATTERN. absent: Rales, Rhonchi, Respiratory Distress - Cardiovascular Exam Cardiovascular Exam: REGULAR RHYTHM, RRR, +S1, +S2. absent: JVD - GI/Abdominal Exam GI & Abdominal Exam: Normal Bowel Sounds, Soft. absent: Distended, Guarding, Rebound, Tenderness - Rectal Exam Rectal Exam: Deferred - Extremities Exam Extremities exam: normal capillary refill, normal inspection, pedal pulses present - Back Exam Back exam: NORMAL INSPECTION - Neurological Exam Neurological exam: Alert, CN II-XII Intact, Oriented x3, Reflexes Normal - Psychiatric Exam Psychiatric exam: Normal Affect, Normal Mood - Skin Skin Exam: Dry, Intact, Normal Color, Warm Discharge Plan - Discharge Medications Prescriptions: Amoxicillin/Clavulanate [Augmentin 875 MG-125 MG] 1 tab PO Q12 #14 tab oxyCODONE/Acetaminophen [Percocet 5/325 mg Tab] 1 tab PO Q6 PRN #30 tab PRN Reason: Pain, Severe (8-10) - Follow Up Plan Condition: STABLE Disposition: HOME/ ROUTINE Patient education suggested?: Yes Instructions: Appendicitis (DC), Laparoscopic Appendectomy (DC) Referrals: Malcolm Alvarez MD [Staff Provider] -
[2017-06-18 13:26] VITALS: O2SAT 99
== END 2017-06-15 12:40 | disposition home or self-care (01) ==
LOC: H.ER 10:51 → H.ERHOLD 15:19 → H.MEDSURG1 21:25
PROVIDERS: ADMIT Hospitalist; ATTEND Hospitalist
DX: K35.80 Unspecified acute appendicitis (principal)
CPT/HCPCS: 36415; 44970; 74177; 80053; 82803; 83690; 85025; 88304; 99282; C9113; G0378; J0330; J1885; J2405; J2543; J2704; J2710; J2765; J3010; J7040; J7120; Q9967